=== PATIENT | female | born 1990 | race Two or more races ===

== ENCOUNTER 2017-02-12 12:56 | Emergency (ER) | payer SELFPAY ==
[~2017-02-12] VITALS: Ht 144.8 cm; Wt 52.2 kg
[2017-02-12 13:12] VITALS: BP 116/56
[2017-02-12] MEDS ORDERED: TRIA15OI TP (13:24)
[2017-02-12] MEDS ORDERED: CETI10TA22 PO (13:24)
[2017-02-12] MEDS ORDERED: PRED-220 PO (13:24)
--- NOTE | 2017-02-12 13:24 | PHYS DOC ---
Past Medical History Past Medical History: No Pertinent History Past Surgical History: Other Additional Past Surgical Histo: L ear tumor removed Alcohol Use: None Drug Use: None Adult General Chief Complaint Chief Complaint: SKIN PROBLEM HPI HPI Patient is a 27 year old female with history of eczema who presents today with a rash consistent with eczema that has been coming on and off for the last 1 year. Patient denies any fever. Review of Systems Review of Systems Constitutional: Denies fever or chills [] Musculoskeletal: Denies back pain or joint pain [] Integument: Eczema rash Neurologic: Denies headache, focal weakness or sensory changes [] Endocrine: Denies polyuria or polydipsia [] Allergies Allergies Allergies Coded Allergies Type Severity Reaction Last Updated Verified No Known Drug Allergies 02/12/17 No Physical Exam Physical Exam Constitutional: Well developed, well nourished, no acute distress, non-toxic appearance. [] Skin: Bilateral upper extremities especially on the fingers, and bilateral lower extremities especially medial ankles with excoriated lesions consistent with eczema rash. None of them appears infected. Back: No tenderness, no CVA tenderness. [] Extremities: No tenderness, no cyanosis, no clubbing, ROM intact, no edema. [] Neurologic: Alert and oriented X 3, normal motor function, normal sensory function, no focal deficits noted. [] Current Patient Data Vital Signs Vital Signs Date Time Temp Pulse Resp B/P (MAP) Pulse Ox O2 Delivery O2 Flow Rate FiO2 02/12/17 13:12 98.3 73 16 100 Room Air 98.3 EKG EKG [] Radiology/Procedures Radiology/Procedures [] Course & Med Decision Making Course & Med Decision Making Pertinent Labs and Imaging studies reviewed. (See chart for details) Patient has a rash consistent with eczema. She'll be discharged with tapered dose of prednisone and triamcinolone cream and Benadryl. I highly recommended she follows up with careers counsellor considering this is a chronic situation. Dragon Disclaimer Dragon Disclaimer This electronic medical record was generated, in whole or in part, using a voice recognition dictation system. Departure Departure Impression: Primary Impression: Eczema Disposition: 01 HOME, SELF-CARE Condition: STABLE Referrals: NO PCP (PCP) RADHA BAINS MD Contact this careers counsellor as soon as you can and follow up Patient Instructions: Eczema Additional Instructions: You were seen for eczema rash. We provided you a careers counsellor. Ensure you follow-up with her a soon as you can. Use the prescribed medicines as ordered. Come back to the ED if symptoms worsen. Scripts Cetirizine Hcl (ZYRTEC) 10 Mg Tablet 1 TAB PO DAILY, #30 TAB 2 Refills Prov: AILYN HOWARD APRN 02/12/17 Triamcinolone Acetonide (TRIAMCINOLONE ACETONIDE 0.1% OINT) 15 Gm Oint...g. 1 MARCE TP BID for WOUND CARE, #1 TUBE 3 Refills MIX WITH EUCERIN DIRECTED BY PHYSICIAN Prov: AILYN HOWARD APRN 02/12/17 Prednisone (PREDNISONE) 10 Mg Tablet 10 MG PO UD for PREDNISONE TAPER, #39 TAB 0 Refills Take 3 tablets by mouth twice a day for 3 days, then take 2 tablets by mouth twice a day for 3 days, then take 1 tablet by mouth twice a day for 3 days, then take 1 tablet by mouth daily x 3 days, then stop. Prov: AILYN HOWARD APRN 02/12/17 Problem Qualifiers Primary Impression: Eczema Eczema type: unspecified Qualified Codes: L30.9 - Dermatitis, unspecified AILYN HOWARD APRN Feb 12, 2017 13:24
== END 2017-02-12 14:00 | disposition home or self-care (01) ==
LOC: ER 12:56
DX: L30.9 Dermatitis, unspecified (principal)
CPT/HCPCS: 99283